=== PATIENT | male | born 1990 | race Caucasian/White ===

== ENCOUNTER 2020-10-20 17:36 | Emergency (ER) | payer OTHER, SELFPAY ==
[2020-10-20 17:59] VITALS: BP 113/78; PULSE 78; RESP 18; O2SAT 100; BMI 20.7
--- NOTE | 2020-10-20 18:02 | HMH.EDUTC ---
[facility] [place] Disposition Clinical Impression: Encounter for laboratory testing for COVID-19 virus Disposition: Home, Self-Care Condition on Discharge: Good Instructions: Preventing the Spread of Coronavirus Discharge Instructions Additional Instructions: You were tested for today for COVID19 your test result should be back in the next 24-48 hours, you may call to the [facility] to see if your test results are back in the next 48 hours [phone] [facility] hours are 9am-9pm You was given a handout with instructions for Self Quarantine and Self isolation for while you wait on test results and what to do if they are positive If you are positive the Health Dept will be contacting you also Referrals: PCP,No [Primary Care Provider] - As needed Time of Disposition: 18:04 Medical Decision Making - Itz Inquiry Pt receiving controlled substance: No Itz was queried for this patient: No Vital Signs: 10/20/20 17:59 Pulse Rate [Radial] 78 Respiratory Rate 18 Blood Pressure [Right Arm] 113/78 Blood Pressure Mean [Right Arm] 89 Blood Pressure Source [Right Arm] Automatic Cuff Blood Pressure Position [Right Arm] Sitting 02 Sat by Pulse Oximetry 100 Oxygen Delivery Method Room Air Orders (Tests/Meds): ORDERS Category Date Time Status Covid-19 Nasal PCR Sendout [facility] 10/20/20 17:55 Ordered [facility] [place] HPI - General Stated complaint: COVID TEST Time Seen by Provider: 10/20/20 18:02 Mode of Arrival: Ambulatory Source of Information: Patient Limitations: No Limitations Description of Symptoms (Recalled from Triage Doc. by RN): Patient states that he wants a COVID test just for the fun of it. HEENT Symptoms (Recalled from RN notes): No Resp Symptoms (Recalled from RN notes): No Skin Symptoms (Recalled from RN notes): No MS Symptoms (Recalled from RN notes): No Functional Status (Recalled from RN notes): wnl - History of Present Illness Provider Complaint: Patient state that he has been around his girlfriend that tested positive about 3 weeks ago and she has to be retested for work so he wanted to get tested too State that he was tested when he went to custodial and it was negative but they didnt go very deep with the swab so he wanted to get tested again - Related Data Allergies Allergy/AdvReac Type Severity Reaction Status Date / Time No Known Allergies Allergy Verified 10/20/20 18:01 - Worker's Comp Is this a Worker's Comp case?: No [facility] History - Hepatitis A Screen Drug use history?: No High risk sexual behaviors?: No History of sexually transmitted infection?: No Currently employed?: No Childcare worker?: No Do you have indoor plumbing?: Yes Do you have electricity?: Yes Attestation statement:: This patient has been screened for Hepatitis A risk factors. I have reviewed the patient's past medical history: Yes - Social History Alcohol Intake: never Occupational Status: other ROS Obtained: Yes All systems reviewed & no additional complaints, Yes Systems reviewed as appropriate & no additional complaints - Constitutional Constitutional: Reports system reviewed and no additional complaints, except as docu - ENT Ears, Nose, Mouth, and Throat: Reports system reviewed and no additional complaints, except as docu, Denies nasal congestion, Denies nasal discharge, Denies sinus pain, Denies sinus pressure, Denies sore throat - Cardiovascular Cardiovascular: Reports system reviewed and no additional complaints, except as docu - Respiratory Respiratory: Yes system reviewed and no additional complaints, except as docu - Gastrointestinal Gastrointestingal: Reports: system reviewed and no additional complaints, except as docu Physical Exam - General General appearance: alert, in no apparent distress - ENT ENT exam: Present: normal exam, normal oropharynx, mucous membranes moist, TM's normal bilaterally, normal external ear exam - Respiratory Respiratory exam: Present: normal lung sounds bilaterally. A
[2020-10-20 18:08] VITALS: BP 113/78; PULSE 78; RESP 18; TEMP 36.7; O2SAT 100
[2020-10-22 13:19] LABS: Covid-19 Nasal PCR Sendout Lex NOT DETECTED
== END 2020-10-20 18:13 | disposition home or self-care (01) ==
PROVIDERS: Emergency Provider Nurse Practitioner
DX: Z20.828 Contact with and (suspected) exposure to other viral communicable diseases (principal)
CPT/HCPCS: 99201; U0004

== ENCOUNTER 2020-11-22 20:18 | Emergency (ER) | payer OTHER, SELFPAY ==
[2020-11-22 20:25] VITALS: BP 117/95; PULSE 83; RESP 14; TEMP 36.5; O2SAT 98; BMI 22.1
[2020-11-22 20:38] VITALS: BP 117/95; PULSE 83; RESP 14; TEMP 36.5; O2SAT 98
--- NOTE | 2020-11-22 20:39 | ED_ITS ---
[facility] [place] Disposition Clinical Impression: Exposure to COVID-19 virus Disposition: Home, Self-Care Condition on Discharge: Good Instructions: Preventing the Spread of Coronavirus Discharge Instructions Referrals: PCP,No [Primary Care Provider] - Time of Disposition: 20:40 Medical Decision Making - Itz Inquiry Pt receiving controlled substance: No Orders (Tests/Meds): ORDERS Category Date Time Status Covid-19 Nasal PCR ([facility]) Routine Lab 11/22/20 20:30 Received [facility] [place] HPI - General Stated complaint: covid test Time Seen by Provider: 11/22/20 20:39 - History of Present Illness Provider Complaint: Patient needs COVID test for pre-employment. Relieving factors: none Exacerbating factors: none Associated symptoms: denies other symptoms Treatments prior to arrival: none - Related Data Allergies Allergy/AdvReac Type Severity Reaction Status Date / Time No Known Allergies Allergy Verified 10/20/20 18:01 [facility] History - Hepatitis A Screen Attestation statement:: This patient has been screened for Hepatitis A risk factors. I have reviewed the patient's past medical history: Yes - Social History Alcohol Intake: never Occupational Status: other ROS Obtained: Yes All systems reviewed & no additional complaints Physical Exam - General General appearance: alert, in no apparent distress - Head Head exam: normocephalic - Eye Eye exam: Present: PERRL - ENT ENT exam: Present: normal oropharynx - Chest Chest inspection: Present: symmetric chest wall rise - Respiratory Respiratory exam: Present: normal lung sounds bilaterally - Cardiovascular Cardiovascular exam: Present: regular rate, normal rhythm - Neurological Exam Neurological exam: Present: alert, oriented X3 - Psychiatric Psychiatric exam: Present: normal affect, normal mood - Skin Skin exam: Present: warm, dry, intact
== END 2020-11-22 20:40 | disposition home or self-care (01) ==
PROVIDERS: Emergency Provider Physician Assistant
DX: Z11.52 Encounter for screening for COVID-19 (principal)
CPT/HCPCS: 99202; G0463; U0003

== ENCOUNTER → 2021-08-19 14:08 | Outpatient (CLI) | payer OTHER, SELFPAY ==
[2021-08-19 14:14] LABS: Basophils # 0.1 K/mm3 (0-0.2); Eosinophils # 0.1 K/mm3 (0.0-0.4); Eosinophils % 1.5 % (0.1-12.0); Hematocrit 48.1 % (42.0-52.0); Hemoglobin 15.7 g/dL (14.1-18.0); Lymphocytes # 2.3 K/mm3 (0.7-4.5); Lymphocytes % 25.8 % (10-50); Mean Corpuscular HGB Conc 32.7 g/dL (31.8-35.4); Mean Platelet Volume 9.2 fl (7.4-10.4); Monocytes # 0.6 K/mm3 (0.1-1.0); Monocytes % 6.3 % (1.7-9.3); Neutrophils # 5.7 K/mm3 (1.8-7.8); Neutrophils % 65.3 % (37.0-80.0); Platelet Count 311 K/mm3 (142-424); Red Blood Count 5.06 M/mm3 (4.60-6.20); Red Cell Distribution Width 13.3 % (11.5-17.5); White Blood Count 8.8 K/mm3 (4.8-10.8)
[2021-08-19 17:25] LABS: Chloride 101 mmol/L (98-107); Potassium 5.2 mmoL/L (3.5-5.1); Sodium 140 mmol/L (136-145)
[2021-08-19 17:27] LABS: Alanine Aminotransferase 30 U/L (12-78); Aspartate Amino Transferase 30 U/L (17-59); Blood Urea Nitrogen 11 mg/dl (9-20); Estimated Glomerular Filt Rate 130 ml/min (>60); GFR (African American) 157 ML/MIN (>60)
[2021-08-19 17:28] LABS: Albumin Level 4.6 g/dl (3.5-5.0); Albumin/Globulin Ratio 1.4 (1.1-1.8); Alkaline Phosphatase 99 U/L (38-126); Anion Gap 14.2 mEq/L (5-15); Bilirubin,Total 0.5 mg/dl (0.2-1.3); Calcium 9.4 mg/dl (8.4-10.2); Carbon Dioxide 30 mmol/L (22.0-30.0); Chol/HDL Ratio 4.9 (1-3.5); Cholesterol 222 mg/dl (140-200); Globulin 3.2 g/dL (1.3-3.2); Glucose 96 mg/dl (74-100); HDL Cholesterol 45 mg/dl (40-60); Total Protein,Serum 7.8 g/dl (6.3-8.2); Triglycerides 157 mg/dl (30-150); VLDL Cholesterol 31 mg/dL (0-40)
[2021-08-19 18:00] LABS: Thyroid Stimulating Hormone 3.18 uIU/mL (0.465-4.68)
[2021-08-19 18:54] LABS: Direct LDL Cholesterol 148.05 mg/dL (100-129)
[2021-08-19 18:57] LABS: T4 (Thyroxine) 9.1 ug/dl (5.53-11.0)
[2021-08-19 18:59] LABS: Amphetamine/Metha Screen,Urine Negative ng/ml (<1000); Barbiturates Screen,Urine Negative ng/ml (<200)
[2021-08-19 19:00] LABS: Benzodiazepines Screen,Urine Negative ng/ml (<200)
[2021-08-19 19:01] LABS: Cannabinoid Screen,Urine Negative ng/ml (<50); Cocaine Screen,Urine Negative ng/ml (<300)
[2021-08-19 19:02] LABS: Methadone Screen,Urine Negative ng/ml (<300)
[2021-08-19 19:03] LABS: Opiate Screen,Urine Negative ng/ml (<300); Phencyclidine Screen,Urine Negative ng/ml (<25)
== END ==
PROVIDERS: Visit Provider Emergency Medicine
DX: F90.9 Attention-deficit hyperactivity disorder, unspecified type (principal)
CPT/HCPCS: 80053; 80061; 80305; 82306; 84436; 84443; 85025

== ENCOUNTER → 2022-03-04 16:00 | Outpatient (CLI) | payer BC, MEDICAID, SELFPAY ==
[2022-03-04 18:19] LABS: Amphetamine/Metha Screen,Urine Positive ng/ml (<1000)
[2022-03-04 18:20] LABS: Barbiturates Screen,Urine Negative ng/ml (<200); Benzodiazepines Screen,Urine Negative ng/ml (<200)
[2022-03-04 18:21] LABS: Cannabinoid Screen,Urine Negative ng/ml (<50)
[2022-03-04 18:22] LABS: Cocaine Screen,Urine Negative ng/ml (<300); Methadone Screen,Urine Negative ng/ml (<300)
[2022-03-04 18:23] LABS: Opiate Screen,Urine Negative ng/ml (<300); Phencyclidine Screen,Urine Negative ng/ml (<25)
== END ==
PROVIDERS: Visit Provider Physician Assistant
DX: F90.9 Attention-deficit hyperactivity disorder, unspecified type (principal)
CPT/HCPCS: 80305

== ENCOUNTER → 2022-04-30 07:18 | Outpatient (CLI) | payer BC, OTHER, SELFPAY ==
[2022-04-29 17:37] LABS: Basophils # 0.1 K/mm3 (0-0.2); Basophils % 1.1 % (0.1-2.0); Eosinophils # 0.1 K/mm3 (0.0-0.4); Eosinophils % 1.9 % (0.1-12.0); Hematocrit 49.2 % (42.0-52.0); Hemoglobin 15.7 g/dL (14.1-18.0); Lymphocytes # 2.1 K/mm3 (0.7-4.5); Lymphocytes % 28.8 % (10-50); Mean Corpuscular Hemoglobin 30.4 pg (27.0-31.2); Mean Corpuscular Volume 95.2 fl (80-94); Monocytes # 0.5 K/mm3 (0.1-1.0); Neutrophils # 4.5 K/mm3 (1.8-7.8); Neutrophils % 61.2 % (37.0-80.0); Platelet Count 329 K/mm3 (142-424); Red Blood Count 5.16 M/mm3 (4.60-6.20); Red Cell Distribution Width 13.5 % (11.5-17.5); White Blood Count 7.3 K/mm3 (4.8-10.8)
[2022-04-29 17:45] LABS: Alanine Aminotransferase 26 U/L (12-78); Albumin Level 4.2 g/dl (3.5-5.0); Albumin/Globulin Ratio 1.4 (1.1-1.8); Alkaline Phosphatase 94 U/L (38-126); Anion Gap 12.1 mEq/L (5-15); Aspartate Amino Transferase 32 U/L (17-59); Bilirubin,Total 0.4 mg/dl (0.2-1.3); Blood Urea Nitrogen 13 mg/dl (9-20); Calcium 9.1 mg/dl (8.4-10.2); Carbon Dioxide 27 mmol/L (22.0-30.0); Chloride 104 mmol/L (98-107); Chol/HDL Ratio 3.8 (1-3.5); Cholesterol 187 mg/dl (140-200); Estimated Glomerular Filt Rate 129 ml/min (>60); GFR (African American) 156 ML/MIN (>60); Globulin 2.9 g/dL (1.3-3.2); Glucose 91 mg/dl (74-100); HDL Cholesterol 49 mg/dl (40-60); Potassium 4.1 mmoL/L (3.5-5.1); Sodium 139 mmol/L (136-145); Total Protein,Serum 7.1 g/dl (6.3-8.2); Triglycerides 114 mg/dl (30-150); VLDL Cholesterol 23 mg/dL (0-40)
[2022-04-29 17:56] LABS: Direct LDL Cholesterol 101.54 mg/dL (100-129)
[2022-04-29 18:03] LABS: 25-OH Vitamin D, Total 25.7 ng/mL (30-100)
[2022-04-29 18:16] LABS: Thyroid Stimulating Hormone 1.85 uIU/mL (0.465-4.68)
== END ==
PROVIDERS: PCP Physician Assistant; Visit Provider Physician Assistant
DX: Q63.1 Lobulated, fused and horseshoe kidney (principal); E55.9 Vitamin D deficiency, unspecified
CPT/HCPCS: 80053; 80061; 82306; 84443; 85025; 87086

== ENCOUNTER → 2023-09-29 12:00 | Outpatient (CLI) | payer OTHER, SELFPAY ==
[2023-09-29 20:26] LABS: Benzodiazepines Screen,Urine Negative ng/ml (<200)
[2023-09-29 20:27] LABS: Barbiturates Screen,Urine Negative ng/ml (<200)
[2023-09-29 20:28] LABS: Cocaine Screen,Urine Negative ng/ml (<300); Methadone Screen,Urine Negative ng/ml (<300)
[2023-09-29 20:29] LABS: Cannabinoid Screen,Urine Negative ng/ml (<50)
[2023-09-29 20:30] LABS: Opiate Screen,Urine Negative ng/ml (<300); Phencyclidine Screen,Urine Negative ng/ml (<25)
[2023-09-29 20:33] LABS: Amphetamine/Metha Screen,Urine Negative ng/ml (<1000)
== END ==
PROVIDERS: PCP Physician Assistant; Visit Provider Physician Assistant
DX: F90.9 Attention-deficit hyperactivity disorder, unspecified type (principal)
CPT/HCPCS: 80305

== ENCOUNTER 2023-11-24 19:11 | Outpatient (CLI) | payer OTHER, SELFPAY ==
[2023-11-24 20:27] LABS: Amphetamine/Metha Screen,Urine Positive ng/ml (<1000); Barbiturates Screen,Urine Negative ng/ml (<200)
[2023-11-24 20:29] LABS: Benzodiazepines Screen,Urine Negative ng/ml (<200); Cannabinoid Screen,Urine Negative ng/ml (<50)
[2023-11-24 20:30] LABS: Cocaine Screen,Urine Negative ng/ml (<300); Methadone Screen,Urine Negative ng/ml (<300)
[2023-11-24 20:31] LABS: Opiate Screen,Urine Negative ng/ml (<300)
[2023-11-24 20:32] LABS: Phencyclidine Screen,Urine Negative ng/ml (<25)
== END 2023-11-24 23:59 ==
LOC: LAB.DROPOF 19:12
PROVIDERS: PCP Physician Assistant; Visit Provider Physician Assistant
DX: F90.9 Attention-deficit hyperactivity disorder, unspecified type (principal); Z79.899 Other long term (current) drug therapy
CPT/HCPCS: 80307

== ENCOUNTER 2024-01-22 13:33 | Emergency (ER) | payer OTHER, SELFPAY ==
[2024-01-22 13:45] VITALS: BP 128/76; PULSE 74; RESP 18; TEMP 36.6; O2SAT 98
[2024-01-22 14:05] VITALS: BP 128/76; PULSE 74; RESP 18; TEMP 36.6; O2SAT 98
--- NOTE | 2024-01-22 14:21 | ED_ITS ---
Discharge Plan Disposition Patient Disposition: Home, Self-Care Condition: Good Prescriptions Prescriptions: New amoxicillin 500 mg tablet 500 mg PO BID 10 Days Qty: 20 0RF No Action cetirizine [Zyrtec] 10 mg tablet 10 mg PO QDAY 90 Days Qty: 90 3RF QNASL 80 mcg/actuation HFA aerosol inhaler See Rx Instructions .ROUTE .COMPLEX Qty: 10.6 2RF Dose Instruction: 2 SPRAY INTRANASALLY DAILY ADMINISTER INTO ONE NOSTRIL Rx Instructions: 2 SPRAY INTRANASALLY DAILY ADMINISTER INTO ONE NOSTRIL dextroamphetamine-amphetamine [Adderall XR] 25 mg capsule,extended release 24hr 25 mg PO BID Qty: 60 0RF ergocalciferol (vitamin D2) 1,250 mcg (50,000 unit) capsule 1,250 mcg PO WEEKLY Rx Instructions: TAKE 1 CAPSULE BY MOUTH ONCE WEEKLY Referrals Follow up/Referrals: Melina Armando PA [Primary Care Provider] - See instructions Activity Restrictions/Add. Instructions Additional Instructions/Restrictions: follow up with dentist liliane take antibiotics as ordered Tylenol or Motrin for pain Clinical Impressions Clinical Impression: Abscessed tooth Instructions Patient Instructions: Tooth Abscess Discharge ED Provider: Dl ([facility])[place] [facility] [place] HPI General Stated complaint: swollen jaw and pain Mode of Arrival: Ambulatory Source of Information: Patient Limitations: No Limitations Time Seen by Provider: 01/22/24 14:21 Description of Symptoms (Recalled from Triage Doc. by RN): PATIENT C/O RIGHT LOWER MOUTH PAIN AND SWELLING X 3 DAYS HEENT Symptoms (Recalled from RN notes): Yes Resp Symptoms (Recalled from RN notes): No Skin Symptoms (Recalled from RN notes): No MS Symptoms (Recalled from RN notes): No Functional Status (Recalled from RN notes): WNL History of Present Illness Provider Complaint: 33 yr old male presents for tooth pain and swelling to rt lower jaw. pt states he broke a piece of his tooth off and now having jaw swelling and pain, states cant get into dr till next month to have it pulled Related Data Home Medications Medication Instructions Recorded Confirmed ergocalciferol (vitamin D2) 1,250 1,250 mcg PO WEEKLY 01/22/24 01/22/24 mcg (50,000 unit) capsule Previous Rx's Medication Instructions Recorded cetirizine 10 mg tablet (Zyrtec) 10 mg PO QDAY 90 days #90 tabs 03/17/23 beclomethasone dipropionate 80 See Rx Instructions .Route 11/19/23 mcg/actuation nasal HFA inhaler .COMPLEX #10.6 ea (QNASL) dextroamphetamine-amphetamine ER 25 mg PO BID #60 caps 01/07/24 25 mg 24hr capsule,extend release (Adderall XR) amoxicillin 500 mg tablet 500 mg PO BID 10 days #20 tabs 01/22/24 Allergies Allergy/AdvReac Type Severity Reaction Status Date / Time No Known Allergies Allergy Verified 11/24/23 15:04 Worker's Comp Is this a Worker's Comp case?: No [facility] Disclaimer: The information contained in this section may have been updated after the patient was seen, as this information can be updated by other users. Medical History (Reviewed 01/22/24 @ 14:27 by [place] Lizama ([facility]), [employer]) Allergic rhinitis Horseshoe kidney Attention Deficit Hyperactivity Disorder (ADHD) Social History (Reviewed 01/22/24 @ 14:27 by [place] Lizama ([facility]), [employer]) Smoking Status: Never smoker alcohol intake: never current occupational status: other Travel in the last 8 weeks: None household members: spouse housing: house ROS Obtained: Yes All systems reviewed & no additional complaints except as documented Constitutional Constitutional: Reports system reviewed and no additional complaints, except as documented and Reports as per HPI Eyes Eyes: Reports system reviewed and no additional complaints, except as documented ENT Ears, Nose, Mouth, and Throat: Reports system reviewed and no additional complaints, except as documented, Reports as per HPI, Reports dental pain and Reports other Cardiovascular Cardiovascular: Reports system reviewed and no additional complaints, except as documented Respiratory Respiratory: Reports system reviewed and no additional complaints, except as documented Gastrointestinal Gastrointestingal: Reports system reviewed and no additional complaints, except as documented Integumentary/Breasts Skin/Breast: Reports system reviewed and no additional complaints, except as documented Neurologic Neurologic: Reports system reviewed and no additional complaints, except as documented Endocrine Endocrine: Reports system reviewed and no additional complaints, except as documented Hematologic/Lymphatic Henatologic/Lymphatic: Reports system reviewed and no additional complaints, except as documented Allergic/Immunologic Allergic/Immunologic: Reports system reviewed and no additional complaints, except as documented Physical Exam General General appearance: alert and in no apparent distress Head Head exam: atraumatic Eye Eye exam: Present normal appearance and PERRL ENT ENT exam: Present mucous membranes moist and TM's normal bilaterally Expanded ENT Exam Teeth numbered Image: 2 1. Fractured, Dental Tenderness and Other (cavity) Comment: golf ball size swelling to rt lower jaw Respiratory Respiratory exam: Present normal lung sounds bilaterally Cardiovascular Cardiovascular exam: Present regular rate and normal rhythm Neurological Exam Neurological exam: Present alert and oriented X3 Skin Skin exam: Present warm Medical Decision Making Medical Records Medical records reviewed: Yes I reviewed the patient's medical records. Itz Inquiry Pt receiving controlled substance: No Itz was queried for this patient: No Vital Signs: 01/22/24 13:45 01/22/24 14:05 Temperature 97.9 F 97.9 F Temperature Source Oral Pulse Rate 74 Pulse Rate [Left Brachial] 74 Respiratory Rate 18 18 Blood Pressure 128/76 Blood Pressure [Left Arm] 128/76 Blood Pressure Mean [Left Arm] 93 Blood Pressure Source [Left Arm] Automatic Cuff Blood Pressure Position [Left Arm] Sitting 02 Sat by Pulse Oximetry 98 Oxygen Delivery Method Room Air Lab Data Lab results reviewed: Yes I reviewed the patient's lab results.
[2024-01-22] MEDS: TETRACAINE/BENZOCAINE/BUTAMBEN 56 GM SPRAY TP (14:35)
[2024-01-22] MEDS: LIDOCAINE 2% VISCOUS SOL 15ML UDC 15 ML PO (14:35)
[2024-01-22] MEDS: cefTRIAXone 1GM VIAL 1 GM IM (14:35)
[2024-01-22] MEDS: LIDOCAINE 1% 5ML PF VIAL IM (14:35)
== END 2024-01-22 14:45 | disposition home or self-care (01) ==
PROVIDERS: Emergency Provider Nurse Practitioner Family; PCP Physician Assistant
DX: R68.84 Jaw pain (principal); R22.0 Localized swelling, mass and lump, head; Q63.1 Lobulated, fused and horseshoe kidney
CPT/HCPCS: 96372; 99204; 99212; G0463; J0696

== ENCOUNTER 2024-04-03 20:09 | Emergency (ER) | payer OTHER, SELFPAY ==
[2024-04-03 20:09] VITALS: BP 133/85; PULSE 61; RESP 18; TEMP 36.6; O2SAT 100; BMI 21.1
--- NOTE | 2024-04-03 21:42 | ED_ITS ---
<Statement entered by Manas Fermin MD - 04/03/24 23:01> I was consulted by the ÁNGEL, and we discussed the complexity of the problems being addressed. I approved the treatment and management plan for this patient's care in the emergency department, thus performing a substantive portion of the medical decision making. Manas Fermin MD, SERVANDO, FACEP Discharge Plan Disposition Patient Disposition: Home, Self-Care Condition: Good Prescriptions Prescriptions: New amoxicillin-pot clavulanate 875-125 mg tablet 1 tab PO BID Qty: 20 0RF No Action QNASL 80 mcg/actuation HFA aerosol inhaler See Rx Instructions .ROUTE .COMPLEX Qty: 10.6 2RF Dose Instruction: 2 SPRAY INTRANASALLY DAILY ADMINISTER INTO ONE NOSTRIL Rx Instructions: 2 SPRAY INTRANASALLY DAILY ADMINISTER INTO ONE NOSTRIL cetirizine [Zyrtec] 10 mg tablet 10 mg PO QDAY 90 Days Qty: 90 3RF dextroamphetamine-amphetamine [Adderall XR] 25 mg capsule,extended release 24hr 25 mg PO BID 30 Days Qty: 60 0RF ergocalciferol (vitamin D2) 1,250 mcg (50,000 unit) capsule 1,250 mcg PO WEEKLY Rx Instructions: TAKE 1 CAPSULE BY MOUTH ONCE WEEKLY amoxicillin 500 mg tablet 500 mg PO BID 10 Days Qty: 20 0RF Referrals Follow up/Referrals: Melina Armando PA [Primary Care Provider] - See instructions Activity Restrictions/Add. Instructions Additional Instructions/Restrictions: Please call make an appointment with your dentist in the morning. Return to ER for any worsening signs or symptoms Clinical Impressions Clinical Impression: Abscess, dental Discharge ED Provider: Manas Fermin General Adult HPI <DIVINE Humphries - Last Filed: 04/03/24 21:58> General Chief complaint: Dental/Oral Stated complaint: oral pain with swelling Time Seen by Provider: 04/03/24 21:42 Mode of Arrival: Ambulatory Source of Information: Patient Limitations: No Limitations Description of Symptoms (Recalled from ER Triage Doc. by RN): Pt presented to the ED for a cracked tooth with swelling to jaw on right side of face. Pt stated this happened last night and had this happen before on the other side and knew he may need an abx. History of Present Illness HPI narrative: Patient presents for evaluation of right lower tooth pain. Patient reports that he broke a tooth last night and this morning woke up and it was extremely swollen and painful. Has had previous episodes of other teeth. He has not yet seen a dentist Related Data Home Medications Medication Instructions Recorded Confirmed ergocalciferol (vitamin D2) 1,250 1,250 mcg PO WEEKLY 01/22/24 01/24/24 mcg (50,000 unit) capsule Previous Rx's Medication Instructions Recorded beclomethasone dipropionate 80 See Rx Instructions .Route 11/19/23 mcg/actuation nasal HFA inhaler .COMPLEX #10.6 ea (QNASL) amoxicillin 500 mg tablet 500 mg PO BID 10 days #20 tabs 01/22/24 cetirizine 10 mg tablet (Zyrtec) 10 mg PO QDAY 90 days #90 tabs 03/06/24 dextroamphetamine-amphetamine ER 25 mg PO BID 30 days #60 caps 03/08/24 25 mg 24hr capsule,extend release (Adderall XR) amoxicillin 875 mg-potassium 1 tab PO BID #20 tabs 04/03/24 clavulanate 125 mg tablet Allergies Allergy/AdvReac Type Severity Reaction Status Date / Time No Known Allergies Allergy Verified 01/24/24 15:27 PFS <DIVINE Humphries - Last Filed: 04/03/24 21:58> [facility] Disclaimer: The information contained in this section may have been updated after the patient was seen, as this information can be updated by other users. Medical History , CONSTRUCTION SUPERINTENDENT) Allergic rhinitis Horseshoe kidney Attention Deficit Hyperactivity Disorder (ADHD) Social History , CONSTRUCTION SUPERINTENDENT) Smoking Status: Former smoker alcohol intake: never current occupational status: other Travel in the last 8 weeks: None household members: spouse housing: house <DIVINE Humphries - Last Filed: 04/03/24 21:58> ROS Obtained: Yes Systems reviewed as appropriate & no additional complaints except as documented Physical Exam <DIVINE Humphries - Last Filed: 04/03/24 21:58> General General appearance: alert and in no apparent distress ENT ENT exam: Present other (Patient has significant dental caries however his right lower first molar is fractured. Patient has significant peridental swelling but no gingival erythema. I cannot feel fluctuance.); Absent normal exam, normal oropharynx or mucous membranes moist Respiratory Respiratory exam: Present normal lung sounds bilaterally Cardiovascular Cardiovascular exam: Present regular rate and normal rhythm Neurological Exam Neurological exam: Present alert and oriented X3 Medical Decision Making <DIVINE Humphries - Last Filed: 04/03/24 21:58> Itz Inquiry Pt receiving controlled substance: No Vital Signs: 04/03/24 20:09 Temperature 98 F Temperature Source Oral Pulse Rate [Right Brachial] 61 Respiratory Rate 18 Blood Pressure [Right Arm] 133/85 Blood Pressure Mean [Right Arm] 101 02 Sat by Pulse Oximetry 100 Oxygen Delivery Method Room Air Orders (Tests/Meds): ED MEDICATIONS Discontinued Medications Generic Name Dose Route Start Last Admin Trade Name Freq PRN Reason Stop Dose Admin Amoxicillin/Clavulanate Potassium 1 each 04/03/24 21:46 Amoxicillin/Clavulanate Potassium 875/125mg Tablet PO 04/03/24 21:47 ONCE ONE Bupivacaine HCl 5 mg 04/03/24 21:46 Bupivacaine 0.25% 10ml Inj IJ 04/03/24 21:47 ONCE ONE Lidocaine HCl 5 ml 04/03/24 21:46 Lidocaine 1% 10ml Mdv IJ 04/03/24 21:47 ONCE ONE Medical Decision Narrative: In summary patient is a 34-year-old male who presents to the emergency department for evaluation of dental abscess. Patient is hemodynamically stable upon arrival, febrile. Physical exam is remarkable for significant dental ca olga with a fractured right lower first molar and facial swelling in the same area but no discrete abscess felt.. Differential diagnosis includes cellulitis versus abscess versus dental fracture. I had interactive discussion with the patient regarding potential workup which includes laboratory investigations and CT scan of the face versus initial antibiotics and dental block with follow-up with his dentist. The patient directed decision making patient elected for the latter which consists of a dental block oral Augmentin first dose given here prescription sent to his pharmacy and follow-up with dentistry. Given this patient had a dental block successfully and is now appropriate for discharge <Manas Fermin MD - Last Filed: 04/03/24 21:53> Vital Signs: 04/03/24 20:09 Temperature 98 F Temperature Source Oral Pulse Rate [Right Brachial] 61 Respiratory Rate 18 Blood Pressure [Right Arm] 133/85 Blood Pressure Mean [Right Arm] 101 02 Sat by Pulse Oximetry 100 Oxygen Delivery Method Room Air Orders (Tests/Meds): ED MEDICATIONS Discontinued Medications Generic Name Dose Route Start Last Admin Trade Name Freq PRN Reason Stop Dose Admin Amoxicillin/Clavulanate Potassium 1 each 04/03/24 21:46 Amoxicillin/Clavulanate Potassium 875/125mg Tablet PO 04/03/24 21:47 ONCE ONE Bupivacaine HCl 5 mg 04/03/24 21:46 Bupivacaine 0.25% 10ml Inj IJ 04/03/24 21:47 ONCE ONE Lidocaine HCl 5 ml 04/03/24 21:46 Lidocaine 1% 10ml Mdv IJ 04/03/24 21:47 ONCE ONE Procedures <Manas Fermin MD - Last Filed: 04/03/24 21:53> Miscellaneous Procedure Procedure Performed: Inferior alveolar block Indication dental pain 1% lidocaine and bupivacaine were mixed again one-to-one ratio 5 cc were injected into the mandibular body just posterior to the notch involving the inferior alveolar block patient with complete resolution of symptoms no complications Critical Care <DIVINE Humphries - Last Filed: 04/03/24 21:58> Critical Care Time Critical Care Time: No
[2024-04-03] MEDS: AMOXICILLIN/CLAVULANATE POTASSIUM 875/125MG TABLET 1 EACH PO (21:56)
[2024-04-03] MEDS: BUPIVACAINE 0.25% 10ML INJ 5 MG IJ (21:56)
[2024-04-03] MEDS: LIDOCAINE 1% 10ML MDV 5 ML IJ (21:56)
[2024-04-03 22:01] VITALS: BP 138/75; PULSE 68; RESP 18; TEMP 36.6; O2SAT 100
== END 2024-04-03 22:03 | disposition home or self-care (01) ==
PROVIDERS: Emergency Provider Student in an Organized Health Care Education/Training Program; PCP Physician Assistant
DX: K04.7 Periapical abscess without sinus (principal)
CPT/HCPCS: 99283

== ENCOUNTER 2024-06-02 10:45 | Outpatient (CLI) | payer OTHER, SELFPAY ==
--- NOTE | 2024-06-02 10:50 | XR_ITS ---
FINAL REPORT CLINICAL HISTORY: left shoulder pain COMPARISON: None FINDINGS: 3 views of the left shoulder show no evidence of acute displaced fracture or dislocation of the visualized bony architecture. There are minimal degenerative changes. IMPRESSION: No acute process. Reviewed, Interpreted and Dictated by Minerva Rivas MD Transcribed by Anali Hernandez Authenticated and [facility]
== END 2024-06-02 23:59 | disposition home or self-care (01) ==
LOC: RAD 10:45
PROVIDERS: PCP Physician Assistant; Visit Provider Physician Assistant
DX: M25.512 Pain in left shoulder (principal)
CPT/HCPCS: 73030

== ENCOUNTER 2024-09-27 10:13 | Outpatient (CLI) | payer OTHER, SELFPAY ==
[2024-09-27 14:03] LABS: Alanine Aminotransferase 24 U/L (12-78); Albumin Level 4.6 g/dl (3.5-5.0); Albumin/Globulin Ratio 1.8 (1.1-1.8); Alkaline Phosphatase 107 U/L (38-126); Anion Gap 13.9 mEq/L (5-15); Aspartate Amino Transferase 26 U/L (17-59); Basophils # 0.1 K/mm3 (0-0.2); Basophils % 0.8 % (0.1-2.0); Bilirubin,Total 0.4 mg/dl (0.2-1.3); Blood Urea Nitrogen 18 mg/dl (9-20); Calcium 9.5 mg/dl (8.4-10.2); Carbon Dioxide 30 mmol/L (22.0-30.0); Chloride 102 mmol/L (98-107); Eosinophils # 0.4 K/mm3 (0.0-0.4); Eosinophils % 3.3 % (0.1-12.0); Estimated Glomerular Filt Rate 95 ml/min (>60); GFR (African American) 116 ML/MIN (>60); Globulin 2.6 g/dL (1.3-3.2); Glucose 73 mg/dl (74-100); Hematocrit 47.6 % (42.0-52.0); Hemoglobin 15.4 g/dL (14.1-18.0); Lymphocytes # 3.3 K/mm3 (0.7-4.5); Lymphocytes % 31.1 % (10-50); Mean Corpuscular HGB Conc 32.3 g/dL (31.8-35.4); Mean Corpuscular Hemoglobin 30.6 pg (27.0-31.2); Mean Corpuscular Volume 94.9 fl (80-94); Mean Platelet Volume 8.6 fl (7.4-10.4); Monocytes # 0.8 K/mm3 (0.1-1.0); Monocytes % 7.5 % (1.7-9.3); Neutrophils % 57.2 % (37.0-80.0); Platelet Count 342 K/mm3 (142-424); Potassium 4.9 mmoL/L (3.5-5.1); Red Blood Count 5.02 M/mm3 (4.60-6.20); Red Cell Distribution Width 13.5 % (11.5-17.5); Sodium 141 mmol/L (136-145); Total Protein,Serum 7.2 g/dl (6.3-8.2); White Blood Count 10.5 K/mm3 (4.8-10.8)
[2024-09-27 14:20] LABS: Free T4 (Free Thyroxine) 1.23 ng/dl (0.78-2.19)
[2024-09-27 14:21] LABS: 25-OH Vitamin D, Total 48.8 ng/mL (30-100)
[2024-09-27 14:33] LABS: Thyroid Stimulating Hormone 3.63 uIU/mL (0.465-4.68)
[2024-09-27 18:32] LABS: HIV (1&2) Antibody Rapid NONREACTIVE (NONREACTIVE)
[2024-09-27 22:54] LABS: Hemoglobin A1C 5.4 % (4.0-6.0)
[2024-09-28 06:26] LABS: HCV Ab Non Reactive (Non Reactive)
== END 2024-09-27 23:59 | disposition home or self-care (01) ==
LOC: LAB.DROPOF 09-29 10:15
PROVIDERS: PCP Internal Medicine; Visit Provider Internal Medicine
DX: Z13.21 Encounter for screening for nutritional disorder (principal); Z13.29 Encounter for screening for other suspected endocrine disorder; Z11.4 Encounter for screening for human immunodeficiency virus [HIV]; Z00.00 Encounter for general adult medical examination without abnormal findings; Z13.1 Encounter for screening for diabetes mellitus; Z11.59 Encounter for screening for other viral diseases
CPT/HCPCS: 80050; 80053; 82306; 83036; 84439; 84443; 85025; 86803; 87389

== ENCOUNTER 2024-10-27 14:00 | Outpatient (RCR) | payer OTHER, SELFPAY ==
--- NOTE | 2024-10-16 14:51 | HMH.OTOPEV ---
OT Inpatient Evaluation Rehab OT Outpatient Eval Start: 10/16/24 14:39 Freq: Status: Active Protocol: Document 10/16/24 14:40 ESTAURDO (Rec: 10/16/24 14:51 [facility] [id number]) E-signed By Evert Bishop, OT Outpatient Therapy Subjective History Subjective History Pt is a 34 year old male who reports to therapy for initial evaluation to left shoulder. Pt complains of soreness/pain in left upper trap extending down into shoulder blade area. Pt has been experiencing this pain for ~1 year. Pt does not recall a specific injury causing symptoms to begin. At times he also has shooting pain down left arm and tingling in left fingers. Pt is left hand dominant. 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 His job duties requires significant lifting and repetitive use of bilateral UE 's. Pt does demonstrate with a decline in AROM and strength in left shoulder. Pt will continue to be seen twice a week in order to address left shoulder deficits. New diagnosis of cancer in past 12 No months? Chief Complaint Pain,Stiff,Weakness Symptom Type Ache,Throb,Sharp,Dull Symptoms Relieved By Rest/Positioning Symptoms Aggravated By Physical Activity,Lifting Prior Functional Limitations None Current Functional Limitations Reaching,Lifting,Housework, Sleeping,Recreation Activity Symptom Description Constant but Variable Level of pain today (0-10) 2 Pain scale - at its best (0-10) 2 Pain scale - at its worst (0-10) 7 Shoulder/Elbow Eval Shoulder Objective Measurements Shoulder ROM Left Shoulder Abduction Active Range of 130 degrees Motion (degrees) Shoulder Flexion Active Range of Motion 150 degrees (degrees) Query Text: Shoulder External Rotation Active Range 60 degrees of Motion (degrees) Shoulder Internal Rotation Active Range 60 degrees of Motion (degrees) Shoulder MMT Shoulder Abduction Strength Grade 4- Good- Shoulder Flexion Strength Grade 4- Good- Shoulder External Rotation Strength 4- Good- Grade Shoulder Internal Rotation Strength 4- Good- Grade Shoulder Strength Patient Testing Sitting Position Elbow Objective Measurements QuickDASH Activities Please rate your ability to do the following activities in the last week by selecting the number below the appropriate response. 1. Open a tight or new jar. No difficulty 2. Do heavy fur coat sewer (e.g., wash Mild difficulty blount, floors). 3. Carry a shopping bag or briefcase. No difficulty 4. Wash your back. Mild difficulty 5. Use a knife to cut food. No difficulty 6. Recreational activities in which you Mild difficulty take some force or impact through your arm, shoulder, or hand (e.g., golf, hammering, tennis, etc.). 7. During the past week, to what extent Slightly has your arm, shoulder or hand problem interfered with your normal social activities with family, friends, neighbors or groups? 8. During the past week, were you Slightly limited limited in your work or other regular daily activites as a result of your arm, shoulder or hand problem? 9. Arm, shoulder or hand pain. Moderate 10. Tingling (pins and needles) in your Moderate arm, shoulder or hand. 11. During the past week, how much Mild difficulty difficulty have you had sleeping because of the pain in your arm, shoulder or hand? Quick DASH 21 OT Outpatient Assessment Impairments Problems/Impairments Palpation Tenderness,Impaired Range of Motion,Impaired Strength,Impaired Endurance, Impaired Lifting,Impaired Household Care,Impaired Recreational Activities, Impaired Work Activities, Subjective C/O Pain Prognosis Rehab Potential Good Clinical Impression Consistent with Diagnosis Yes Short Term Goals Number of Weeks 3 Increase Range of Motion Yes: Flex: 160 Abd: 150 ER: 75 IR: 70 Increase Strength Yes: 4/5 throughout left shoulder Increase Endurance Yes: Pt will tolerate L shoulder exercises for ~20 minutes prior to rest. Decrease Subjective C/O Pain Yes: 5/10 at worst Patient to be Ind w/ HEP Yes: AAROM/AROM exercises to left shoulder and upper trap Improve Quick Dash Score Yes: Activities: Below 20 Snf Goals Number of Weeks 6 Increase Range of Motion Yes: Flex: 170 Abd: 160 ER: 90 IR: 70 Increase Strength Yes: 5/5 throughout left shoulder Increase Endurance Yes: Pt will tolerate L shoulder exercises for ~30 minutes prior to rest. Decrease Subjective C/O Pain Yes: 3/10 at worst Patient to be Ind w/ Advanced HEP Yes: Advanced strengthening exercises Improve Quick Dash Score Yes: Activities: below 15 Outpatient Therapy Plan of Care Treatment Plan May Include Therapeutic Exercise Including Home Yes Exercise Program Manual Therapy Techniques Yes Neuromuscular Re-education Yes Therapeutic Activities to Return to Yes Previous Functional/Work Level ADL/Self Care Education Yes Dry Needling Yes Thermal Modalities Yes Electrical Stimulation Yes Ultrasound/Phonophoresis Yes Iontophoresis Yes Parrafin Yes Orthotics/Bracing/Splinting Yes Massage Yes Eval/Re-Eval Yes Frequency Times per week 2 Duration Number of Weeks 6 Addendums This patient is a candidate for social No or vocational rehab? Patient/Guardian verbally acknowledges Yes understanding of treatment program and consents to further treatment? Patient/Guardian verbally acknowledges Yes understanding of diagnosis, prognosis and goals for treatment? Eval Complexity OT Charge 52444 - Moderate Complexity PHYSICIAN CERTIFICATION: I certify the specified therapy services for David Leon are required, authorized, and reviewed every 30 days.
== END 2024-10-27 23:59 | disposition home or self-care (01) ==
LOC: OT 14:00
PROVIDERS: PCP Internal Medicine; Visit Provider Internal Medicine
DX: M25.512 Pain in left shoulder (principal)
CPT/HCPCS: 97166

== ENCOUNTER 2024-11-29 15:00 | Outpatient (RCR) | payer OTHER, SELFPAY ==
--- NOTE | 2024-11-17 15:02 | HMH.RHREAS ---
Rehab Reassessment Rehab OP Re-assessment Start: 11/17/24 14:54 Freq: Status: Active Protocol: Document 11/17/24 14:55 ESTUARDO (Rec: 11/17/24 15:01 ESTUARDO [id number]) E-signed By Evert Bishop OT Rehab Re-assessment Subjective Subjective It is maybe a little better. Objective Objective Notes Pt seen this date for the first time since initial evaluation 31 days ago to left shoulder. Pt engaged in AROM , AAROM, and strength exercises at L shoulder. Pt also receives PROM manual stretching to left shoulder in all planes: flexion, abduction, ER, and IR. Modalities are provided in order to decrease pain/ inflammation. Assessment Progress Assessment Slower Than Expected Assessment Notes Pt has not attended a therapy session since initial evaluation at L shoulder 31 days ago. Pt reports he did return to doctor last week. He provided him with Mobic anti-inflammatory and reports it has improved his pain slightly. Pt's pain is now reaching a 4/10 at worst. Pt returns to doctor in 2 months for another re-evaluation. Pt has not had a MRI. Current L shoulder AROM Flex: 145 degrees Abd: 140 degrees ER: 75 degrees IR: 65 degrees Patient goals met n/a Goals Not Met See below Revised Goals ST-6 LT-6 Plan Plan Continue with OT plan of care at this time. Frequency of Therapy 2x's a week Duration of therapy 4 more weeks Time and Billing Re-Eval Time 8 Re-Eval Billing Units 1 Charge for OT reassessment? No PHYSICIAN CERTIFICATION: I certify the specified therapy services for David Leon are required, authorized, and reviewed every 30 days.
== END 2024-11-29 23:59 | disposition home or self-care (01) ==
LOC: OT 15:00
PROVIDERS: Visit Provider Internal Medicine
DX: M25.512 Pain in left shoulder (principal)
CPT/HCPCS: 97014; 97110; 97140; G0283

== ENCOUNTER 2025-07-31 16:17 | Outpatient (CLI) | payer OTHER, SELFPAY ==
--- OUTSIDE RECORDS SUMMARY | 2025-07-31 16:20 | XMS_ITS | Clinical Summary ---
Author Organization [facility] Address [address] [place] [address] Care Team Providers Care Dinkey Driver Name Role Phone Melina Armando Primary Care Provider [phone] Allergies No known active allergies Medications Iron-Vitamin C (Iron 100/C) 100-250 MG tablet iron Active vitamin B-6 (PYRIDOXINE) 100 MG tablet Vitamin B6 Activ e vitamin B-12 (CYANOCOBALAMIN ) 100 MCG tablet Vitamin B12 Active Adderall XR 20 MG 24 hr capsule 3 Active Qnasl 80 MCG/ACT aerosol solution 2 SPRAY INTRANASALLY DAILY ADMINISTER INTO ONE NOSTRIL 3 Active cetirizine (zyrTEC) 10 MG tablet Take 1 tablet by mouth Daily. 3 Active vitamin D (ERGOCALCIFEROL ) 1.25 MG (07339 UT) capsule capsule Take 1 capsule by mouth 1 (One) Time Per Week. 3 Active diclofenac (VOLTAREN) 75 MG EC tabletIndicatio ns:Dental abscess Take 1 tablet by mouth 2 (Two) Times a Day. 10 tablet 3 Active Social History Tobacco Use Types Packs/Day Years Used Date Smoking Tobacco: Never Assessed Abuse Screen Answer Date Recorded Unsafe at Home or Work/School Not on file Feels Threatened by Someone? Not on file Does Anyone Keep You from Co ntacting Others or Doint Things Outside the Home? Not on file 08/20/2023 Physical Sign of Abuse Present Not on file 1 Housing Stability Answer Date Recorded Current Living Arrangements Not on file 08/08 Potentially Unsafe Housing Conditions Not on geraldo e 08/20/2023 Family and Community Support Answer Lenard e Recorded Help with Day-to-Day Activities Not on file 08/20/2023 Lonely or Isolated Not on file 08/20/2023 Employment Answer Date Recorded Do you want help finding or keeping work or a laith b? Not on file 08/20/2023 Disabilities Answer Date Recorded Concentrating, Remembering, or Making Decisions Difficulty Not on file 08/20/2023 Doing Errands Independently Difficulty Not on fi le 08/20/2023 Education Answer Date Recorded Help with school or training? Not on file Preferred Language Not on file 08/20/2023 Sex and Gender Information Value Date Recorded Sex Assigned at Not on file Legal Sex Male 4:10 PM EST Gender Identity Not on file Sexual Orientation Not on file Last Filed Vital Signs Vital Sign Reading Time Taken Comments Blood Pressure 136/82 01/09/2023 5:15 PM EST Pulse 86 01/09/2023 5:15 PM EST Temperature 37.3 C (99.2 F) 01/09/2023 5:15 PM EST Respiratory Rate 16 01/09/2023 5:15 PM EST Oxygen Saturation 98% 01/09/2023 5:15 PM EST Inhaled Oxygen Concentration - - Weight - - Height - - Body Mass Index - - Plan of Treatment Health Maintenance Due Date Last Done Comments ANNUAL PHYSICAL 1988 HEPATITIS C SCREENING 1988 TDAP/TD VACCINES (2 - Tdap) 05/26/2014 05/26/2004 INFLUENZA VACCINE 06/08/2025 Pneumococcal Vaccine 0-49 Aged Out No longer eligible based on patient's age to complete this topic Insurance DYLAN RYDER [id number] [facility] [employer] [facility] Care Teams Dinkey Driver Relationship Specialty Start Date End Date Melina Armando PA PCP - General Physician Chocolate Dipper 01/09/23
--- OUTSIDE RECORDS SUMMARY | 2025-07-31 16:20 | XMS_ITS | Clinical Summary ---
Author Organization [facility] Address [address] [place] [address] Care Team Providers Care Hotel Night Auditor Name Role Phone Unavailable Primary Care Provider Unavailabl e Immunizations Immunization Administration Dates Next Due PPD Skin Test (TB Skin Test) 07/13/2006 Family History Medical History Relation Name Comments Other cancer Father Relation Name Status Comments Father Social History Tobacco Use Types Packs/Day Years Used Date Smoking Tobacco: Former Sex and Gender Information Value Date Recorded Sex Assigned at Not on file Legal Sex Male 7:30 PM EDT Gender Identity Not on file Sexual Orientation Not on file Last Filed Vital Signs Vital Sign Reading Time Taken Comments Blood Pressure - - Pulse - - Temperature - - Respiratory Rate - - Oxygen Saturation - - Inhaled Oxygen Concentration - - Weight 70.3 kg (155 lb 0.1 oz) 04/19/2015 3:18 P M EDT Height - - Body Mass Index - - Plan of Treatment Not on file
--- NOTE | 2025-07-31 16:45 | MR_ITS ---
PROCEDURE INFORMATION: Exam: MR Left Upper Extremity Joint Without Contrast; Shoulder Exam date and time: 07/31/2025 4:44 PM Age: 35 years old Clinical indication: Left shoulder pain x 1 year; Additional info: Rotator cuff pain TECHNIQUE: Imaging protocol: Magnetic resonance imaging of the left upper extremity without contrast. Exam focused on the shoulder. COMPARISON: CR XR SHOULDER LT MIN 2V 06/02/2024 10:58 AM FINDINGS: Bones/joints: Small glenohumeral joint effusion. Moderate acromioclavicular joint degenerative change with subchondral cystic change, bone marrow edema, capsular thickening and pericapsular edema.. Type 3 acromion with mild undersurface spurring and upright mild impingement on the rotator cable. Moderate tendinopathy and suspect partial-thickness tear of the rotator cable. Rotator interval: Trace fluid and mild soft tissue edema in the rotator interval. Glenoid labrum: Unremarkable. No evidence of tear. Bursae: Small volume fluid immediately caudal/underlying the rotator cable. Supraspinatus tendon: [id number] tendinosis in the supraspinatus tendon without distinct tear. Infraspinatus tendon: Mild tendinosis in the infraspinatus tendon, without distinct tear. Subscapularis tendon: Unremarkable. No evidence of tear. Teres minor tendon: Unremarkable. No evidence of tear. Tendon of biceps brachii: Mild extra-articular biceps tendinosis and tenosynovitis. Mild tendinosis of the intra-articular biceps. Glenohumeral ligaments: Unremarkable. Soft tissues: Axillary pouch is mildly thickened. Normal muscle bulk and signal. Possible mild fatty atrophy of the infraspinatus muscle. IMPRESSION: 1. Moderate acromioclavicular joint degenerative change. Type 3 acromion with mild to moderate undersurface spurring. 2. Moderate tendinopathy and suspect partial-thickness tear of the rotator cable. 3. There are findings suspicious for adhesive capsulitis. Recommend correlation. 4. [id number] tendinosis of the supraspinatus tendon without tear. Mild tendinosis of the infraspinatus tendon without tear. 5. Mild extra-articular biceps tendinosis and tenosynovitis. Mild intra-articular biceps tendinosis.
== END 2025-07-31 23:59 | disposition home or self-care (01) ==
LOC: RAD 16:18
PROVIDERS: PCP Internal Medicine; Visit Provider Internal Medicine
DX: M19.012 Primary osteoarthritis, left shoulder (principal); M75.82 Other shoulder lesions, left shoulder; M77.8 Other enthesopathies, not elsewhere classified; M75.22 Bicipital tendinitis, left shoulder; R93.6 Abnormal findings on diagnostic imaging of limbs
CPT/HCPCS: 73221